=== PATIENT | female | born 1975 | race American Indian/Alaskan Native ===

== ENCOUNTER 2017-11-18 10:33 | Emergency (ER) | payer MEDICAID ==
[2017-11-18 11:16] VITALS: BP 127/78
[2017-11-18 12:12] LABS: Basophils # (Auto) 0.1 K/mm3 (0.0-0.1); Basophils % (Auto) 0.6 % (0.0-1.8); Eosinophils # (Auto) 0.7 K/mm3 (0.0-0.4); Eosinophils % (Auto) 7.8 % (0.0-4.3); Hematocrit 39.9 % (30.3-42.9); Hemoglobin 13.5 gm/dl (10.1-14.3); Lymphocytes % (Auto) 23.3 % (13.4-35.0); Mean Corpuscular HGB Conc 34 % (30-34); Mean Corpuscular Hemoglobin 33 pg (28-32); Mean Corpuscular Volume 98 fl (79-97); Monocytes # (Auto) 0.5 K/mm3 (0.0-0.8); Platelet Count 325 K/mm3 (140-440); Red Blood Count 4.07 M/mm3 (3.65-5.03); Red Cell Distribution Width 14.2 % (13.2-15.2)
[2017-11-18] MEDS ORDERED: TORADOL IV ONE (14:11)
[2017-11-18] MEDS ORDERED: NACL 0.9% 1000 ML 1,000 ML IV ONE (14:11)
--- NOTE | 2017-11-18 14:15 | Emergency Department Report ---
Blank Doc - Documentation Documentation: Patient is a 42-year-old [place] female who is presenting with vaginal bleeding and crampy lower abdominal pain for the last 2 days. Patient is S Mr. period was September 19. Patient is worried about miscarriage. Patient is positive Rh and does not need RhoGAM at this time. Ultrasound has been ordered a quantitative is an 800 range.
--- NOTE | 2017-11-18 17:00 | Emergency Department Report ---
ED HPI - General Chief complaint: Vaginal Bleeding Stated complaint: VAGINAL BLEEDING/POSS MISCARRIAGE Time Seen by Provider: 11/18/17 14:04 Source: patient Mode of arrival: Ambulatory Limitations: No Limitations - History of Present Illness Initial comments: Please see Blank note from emeses screening. Patient is a 42-year-old [place] female who is with vaginal bleeding. Patient's suprapubic discomfort as a 6 out of 10 in severity cramping patient has past 3 small clots of blood. Bleeding started yesterday. Last known menstrual period was September 19 - Related Data Previous Rx's Medication Instructions Recorded Last Taken Type Azithromycin [Zithromax] 2 tab PO ONCE #2 tablet 10/15/13 Unknown Rx Fluconazole [Diflucan] 150 mg PO QDAY #1 tablet 10/15/13 Unknown Rx Azithromycin [Zithromax TAB] 1,000 mg PO QDAY #4 tablet 05/10/15 Unknown Rx Ibuprofen [Motrin 600 MG tab] 600 mg PO Q8H PRN #50 tablet 05/10/15 Unknown Rx metroNIDAZOLE [Flagyl TAB] 500 mg PO Q12HR #20 tab 05/10/15 Unknown Rx Ibuprofen [Motrin] 600 mg PO Q8H PRN #12 tablet 11/18/17 Unknown Rx Allergies Allergy/AdvReac Type Severity Reaction Status Date / Time acetaminophen Allergy Unknown Verified 10/15/13 02:31 [From Tylenol-Codeine #3] ciprofloxacin [From Cipro] Allergy Nausea Verified 10/15/13 02:31 ciprofloxacin HCl Allergy Nausea Verified 10/15/13 02:31 [From Cipro] codeine phosphate Allergy Unknown Verified 10/15/13 02:31 [From Tylenol-Codeine #3] ED Review of Systems ROS: Stated complaint: VAGINAL BLEEDING/POSS MISCARRIAGE Other details as noted in HPI Constitutional: denies: chills, fever Eyes: denies: eye pain, eye discharge, vision change ENT: denies: ear pain, throat pain Respiratory: denies: cough, shortness of breath, wheezing Cardiovascular: denies: chest pain, palpitations Endocrine: no symptoms reported Gastrointestinal: denies: abdominal pain, nausea, diarrhea Genitourinary: denies: urgency, dysuria, discharge Musculoskeletal: denies: back pain, joint swelling, arthralgia Skin: denies: rash, lesions Neurological: denies: headache, weakness, paresthesias Psychiatric: denies: anxiety, depression Hematological/Lymphatic: denies: easy bleeding, easy bruising ED Past Medical Hx - Past Medical History Previous Medical History?: Yes Hx Psychiatric Treatment: Yes (Anxiety, Psychosis, Depression) Additional medical history: Vaginal warts (laser removed) , Eating disorder, Abortions x 10, Miscarriage x3 - Surgical History Past Surgical History?: Yes - Social History Smoking Status: Current Every Day Smoker Substance Use Type: Marijuana, Prescribed - Medications Home Medications: Home Medications Medication Instructions Recorded Confirmed Last Taken Type Azithromycin [Zithromax] 2 tab PO ONCE #2 tablet 10/15/13 Unknown Rx Fluconazole [Diflucan] 150 mg PO QDAY #1 tablet 10/15/13 Unknown Rx Azithromycin [Zithromax TAB] 1,000 mg PO QDAY #4 tablet 05/10/15 Unknown Rx Ibuprofen [Motrin 600 MG tab] 600 mg PO Q8H PRN #50 tablet 05/10/15 Unknown Rx metroNIDAZOLE [Flagyl TAB] 500 mg PO Q12HR #20 tab 05/10/15 Unknown Rx Ibuprofen [Motrin] 600 mg PO Q8H PRN #12 tablet 11/18/17 Unknown Rx ED Physical Exam - General Limitations: No Limitations General appearance: alert, in no apparent distress - Head Head exam: Present: atraumatic, normocephalic - Eye Eye exam: Present: normal appearance - ENT ENT exam: Present: mucous membranes moist - Neck Neck exam: Present: normal inspection - Respiratory Respiratory exam: Present: normal lung sounds bilaterally. Absent: respiratory distress - Cardiovascular Cardiovascular Exam: Present: regular rate, normal rhythm. Absent: systolic murmur, diastolic murmur, rubs, gallop - GI/Abdominal GI/Abdominal exam: Present: soft, tenderness (suprapubic), normal bowel sounds. Absent: distended, guarding, rebound - Extremities Exam Extremities exam: Present: normal inspection - Back Exam Back exam: Present: normal inspection - Neurological Exam Neurological exam: Present: alert, oriented X3 - Psychiatric Psychiatric exam: Present: normal affect, normal mood - Skin Skin exam: Present: warm, dry, intact, normal color. Absent: rash ED Course Vital Signs 11/18/17 11:10 Temperature 98.1 F Pulse Rate 85 Respiratory 16 Rate Blood Pressure 127/78 O2 Sat by Pulse 100 Oximetry ED Medical Decision Making - Lab Data Result diagrams: 11/18/17 11:18 Lab Results 11/18/17 11/18/17 11/18/17 Range/Units 11:18 11:18 11:18 WBC 8.6 (4.5-11.0) K/mm3 RBC 4.07 (3.65-5.03) M/mm3 Hgb 13.5 (10.1-14.3) gm/dl Hct 39.9 (30.3-42.9) % MCV 98 H (79-97) fl MCH 33 H (28-32) pg MCHC 34 (30-34) % RDW 14.2 (13.2-15.2) % Plt Count 325 (140-440) K/mm3 Lymph % (Auto) 23.3 (13.4-35.0) % Johnson % (Auto) 6.0 (0.0-7.3) % Eos % (Auto) 7.8 H (0.0-4.3) % Baso % (Auto) 0.6 (0.0-1.8) % Lymph # 2.0 (1.2-5.4) K/mm3 Johnson # 0.5 (0.0-0.8) K/mm3 Eos # 0.7 H (0.0-0.4) K/mm3 Baso # 0.1 (0.0-0.1) K/mm3 Seg Neutrophils % 62.3 (40.0-70.0) % Seg Neutrophils # 5.4 (1.8-7.7) K/mm3 HCG, Quant 821.9 H (0-4) mIU/mL Blood Type O POSITIVE Antibody Screen Negative - Radiology Data Radiology results: report reviewed No IUP is seen patient has normal ovaries - Medical Decision Making Had a long discussion with the patient regarding her beta hCG and her ultrasound and the fact that she is most likely miscarry however we cannot be percent. Patient is a threatened miscarriage at this time. Patient will follow with her doctor in 2-3 days for repeat beta Quant Critical care attestation.: If time is entered above; I have spent that time in minutes in the direct care of this critically ill patient, excluding procedure time. ED Disposition Clinical Impression: Threatened Disposition: DC-01 TO HOME OR SELFCARE Is pt being admited?: No Does the pt Need Aspirin: No Condition: Stable Instructions: Threatened Miscarriage (ED) Prescriptions: Ibuprofen [Motrin] 600 mg PO Q8H PRN #12 tablet PRN Reason: Pain Referrals: PRIMARY CARE,MD [Primary Care Provider] - 3-5 Days
--- NOTE | 2017-11-19 09:39 | Ultrasound Report ---
ULTRASOUND OB LESS THAN 14 WEEKS ULTRASOUND OB TRANSVAGINAL HISTORY: Vaginal bleeding during . TECHNIQUE: Transabdominal and transvaginal ultrasound imaging. FINDINGS: The uterus is anteverted. The uterus measures 8.7 x 5.8 x 6.2 cm. No uterine mass is identified. The cervix is unremarkable. The endometrium measures 10 mm in thickness. There is trace fluid in the lower uterine segment. No intrauterine is visualized. No heart tones. The right ovary measures 2.7 x 1.7 x 1.6 cm. The left ovary measures 2.8 x 2.0 x 3.1 cm. No adnexal cyst or mass is identified. No pelvic fluid collection. IMPRESSION: No intrauterine is visualized. This may represent spontaneous . The endometrial stripe measures 10 mm and contains trace fluid.
== END 2017-11-18 15:45 | disposition home or self-care (01) ==
LOC: ED 10:33
DX: O20.0 Threatened abortion (principal); Z3A.14 14 weeks gestation of pregnancy; O99.331 Smoking (tobacco) complicating pregnancy, first trimester
CPT/HCPCS: 36415; 76801; 76817; 84702; 85025; 86850; 86900; 86901; 96361; 96374; 99284; J1885; J7030

== ENCOUNTER 2019-01-03 12:42 | Emergency (ER) | payer MEDICAID, OTHER ==
[2019-01-03 13:20] VITALS: BP 121/76
--- NOTE | 2019-01-03 13:20 | Emergency Department Report ---
Blank Doc - Documentation Documentation: This is a 43-year-old female that presents with dysuria. Denies any back pain. This initial assessment/diagnostic orders/clinical plan/treatment(s) is/are subject to change based on patient's health status, clinical progression and re- assessment by fellow clinical providers in the ED. Further treatment and workup at subsequent clinical providers discretion. Patient/guardians urged not to elope from the ED as their condition may be serious if not clinically assessed and managed. Initial orders include: 1- Patient sent to [facility] for further evaluation and treatment 2- UA
[2019-01-03 13:27] LABS: Bacteria,Urine 1+ /HPF (Negative); Bilirubin,Urine NEG (Negative); Blood,Urine NEG (Negative); Color,Urine Yellow (Yellow); Mucus,Urine 3+ /HPF; Protein,Urine <15 mg/dL mg/dL (Negative); Urobilinogen,Urine < 2.0 mg/dL (<2.0)
[2019-01-03 13:28] LABS: HCG Qualitative,Urine Negative (Negative)
[2019-01-03] MEDS ORDERED: ZOFRAN ODT PO ONE (15:51)
--- NOTE | 2019-01-03 15:52 | Emergency Department Report ---
ED Dysuria HPI - HPI Chief Complaint: Urogenital-Female Stated Complaint: POSS UTI/RT SIDE PAIN Time Seen by Provider: 01/03/19 13:19 Duration: 2 Days Severity: None Symptoms: Dysuria: Yes, Frequency: No, Suprapubic Pain: No, Flank Pain: Yes, Fever: No, Hematuria: No, Abdominal Pain: No, Previous UTI's: Yes Other History: She is a 43-year-old female who comes to the ER today complaining of dysuria. She states this is how she feels when she has her urinary tract infections. Patient states her last menstrual cycle was 31. Patient describes a history of an eating disorder which she goes on to say it is anxiety and therefore she does not want to eat. She supposed to be on Xanax and Zoloft but has not been on them for 8 months. Patient has been taking herbs to treat her urinary tract infection she states that initially it seemed to get better but now today her dysuria is worsened. UTIs associated with some nausea. She has no fever. No chills. No abdominal pain. No CVA tenderness on exam. Patient is ambulatory and nontoxic in the ER ED Review of Systems ROS: Stated complaint: POSS UTI/RT SIDE PAIN Other details as noted in HPI Comment: All other systems reviewed and negative Constitutional: denies: chills, fever Eyes: denies: eye pain Respiratory: denies: cough Cardiovascular: denies: palpitations Endocrine: denies: excessive sweating Gastrointestinal: as per HPI, nausea Genitourinary: as per HPI, dysuria Musculoskeletal: denies: back pain Skin: denies: rash Neurological: denies: headache Psychiatric: denies: anxiety Hematological/Lymphatic: denies: easy bleeding ED Past Medical Hx - Past Medical History Previous Medical History?: Yes Hx Psychiatric Treatment: Yes (Anxiety, Psychosis, Depression) Additional medical history: Vaginal warts (laser removed) , Eating disorder, Abortions x 10, Miscarriage x3 - Surgical History Past Surgical History?: No - Family History Family history: no significant - Social History Smoking Status: Never Smoker Substance Use Type: None - Medications Home Medications: Home Medications Medication Instructions Recorded Confirmed Last Taken Type Fluconazole (Nf) [Diflucan] 100 mg PO QDAY #1 each 01/03/19 Unknown Rx Nitrofurantoin [place]/M-Cryst 100 mg PO Q12HR #10 capsule 01/03/19 Unknown Rx [Macrobid CAP] Ondansetron [Zofran Odt] 4 mg PO Q8HR PRN #10 tab.rapdis 01/03/19 Unknown Rx Dysuria Exam - Exam General: Vital signs noted. No distress. Alert and acting appropriately. S1 S2 HR 100 ON EXAM PT STATES SHE GETS ANXIOUS WHEN AT THE HOSPITAL LUNGS CTA ABD SOFT NONTENDER NO CVA TENDERNESS Exam: Yes Moist Mucous Membranes, No CVA Tenderness, No Abdominal Tenderness, No Rigidity or Guarding Labs: Lab Results 01/03/19 01/03/19 Range/Units 13:13 13:13 Urine Color Yellow (Yellow) Urine Turbidity Slightly-cloudy (Clear) Urine pH 5.0 (5.0-7.0) Ur Specific [place] 1.030 (1.003-1.030) Urine Protein <15 mg/dl (Negative) mg/dL Urine Glucose (UA) Neg (Negative) mg/dL Urine Ketones 20 (Negative) mg/dL Urine Blood Neg (Negative) Urine Nitrite Neg (Negative) Urine Bilirubin Neg (Negative) Urine Urobilinogen < 2.0 (<2.0) mg/dL Ur Leukocyte Esterase Neg (Negative) Urine WBC (Auto) 1.0 (0.0-6.0) /HPF Urine RBC (Auto) 4.0 (0.0-6.0) /HPF U Epithel Cells (Auto) 12.0 (0-13.0) /HPF Urine Bacteria (Auto) 1+ (Negative) /HPF Urine Mucus 3+ /HPF Urine HCG, Qual Negative (Negative) ED Course Vital Signs 01/03/19 13:18 Temperature 98 F Pulse Rate 114 H Respiratory 16 Rate Blood Pressure 121/76 O2 Sat by Pulse 98 Oximetry - Reevaluation(s) Reevaluation #1: 01/03/19 16:51 pt allergic to cipro and bactrim will treat with macrobid pt instructed to follow up with pcp to be sure this goes away. vss taking po on dc ED Medical Decision Making - Medical Decision Making UA NOTED HAS BEEN SELF TREATING WITH HERBS ASSOCIATED WITH NAUSEA SEE HPI HER NAUSEA AND ANXIETY SHE STATES HAVE LIMITED HER PO INTAKE Labs 01/03/19 01/03/19 13:13 13:13 Urine Color Yellow Urine Turbidity Slightly-cloudy Urine pH 5.0 Ur Specific [place] 1.030 Urine Protein <15 mg/dl Urine Glucose (UA) Neg Urine Ketones 20 Urine Blood Neg Urine Nitrite Neg Urine Bilirubin Neg Urine Urobilinogen < 2.0 Ur Leukocyte Esterase Neg Urine WBC (Auto) 1.0 Urine RBC (Auto) 4.0 U Epithel Cells (Auto) 12.0 Urine Bacteria (Auto) 1+ Urine Mucus 3+ Urine HCG, Qual Negative Vital Signs 01/03/19 13:18 Temperature 98 F Pulse Rate 114 H Respiratory 16 Rate Blood Pressure 121/76 O2 Sat by Pulse 98 Oximetry ALLERGY TO BACTRIM AND CIPRO DC ON MACROBID PT INSTRUCTED ON NEED TO FOLLOW UP DIFLUCAN FOR YEAST PREVENTION Critical care attestation.: If time is entered above; I have spent that time in minutes in the direct care of this critically ill patient, excluding procedure time. ED Disposition Clinical Impression: Anxiety, Medical non-compliance, Dysuria Disposition: - TO HOME OR SELFCARE Is pt being admited?: No Does the pt Need Aspirin: No Condition: Stable Instructions: Dehydration (ED) Additional Instructions: DRINK A LOT OF WATER URINE HAS NO SIGN OF INFECTION NOT MOTRIN OR TYLENOL FOR PAIN FOLLOW UP WITH PCP TO BE SURE YOU ARE GETTING BETTER. Prescriptions: Fluconazole (Nf) [Diflucan] 100 mg PO QDAY #1 each Nitrofurantoin [place]/M-Cryst [Macrobid CAP] 100 mg PO Q12HR #10 capsule Ondansetron [Zofran Odt] 4 mg PO Q8HR PRN #10 tab.rapdis PRN Reason: Vomiting Referrals: [facility] MD ALETHEA [Primary Care Provider] - 3-5 Days Time of Disposition: 15:50
== END 2019-01-03 16:57 | disposition home or self-care (01) ==
LOC: ED 12:42
DX: R30.0 Dysuria (principal); F41.9 Anxiety disorder, unspecified; F32.9 Major depressive disorder, single episode, unspecified; F29 Unspecified psychosis not due to a substance or known physiological condition; Z91.14 Patient's other noncompliance with medication regimen; Z88.6 Allergy status to analgesic agent; Z88.1 Allergy status to other antibiotic agents; Z88.5 Allergy status to narcotic agent
CPT/HCPCS: 81001; 81025; Q0162

== ENCOUNTER 2019-05-26 13:09 | Emergency (ER) | payer SELFPAY ==
[2019-05-26 13:23] VITALS: BP 121/77
--- NOTE | 2019-05-26 13:23 | Event Note ---
ED Screening Note ED Screening Note: pt having vaginal discharge This initial assessment/diagnostic orders/clinical plan/treatment(s) is/are s ubject to change based on patients health status, clinical progression and re- assessment by fellow clinical providers in the ED. Further treatment and workup at subsequent clinical providers discretion. Patient/guardian urged not to elope from the ED as their condition may be serious if not clinically assessed and managed. Initial orders include: UA, urine preg
[2019-05-26 13:53] LABS: Bilirubin,Urine NEG (Negative); Blood,Urine NEG (Negative); Color,Urine Yellow (Yellow); Mucus,Urine 3+ /HPF; Urobilinogen,Urine < 2.0 mg/dL (<2.0)
[2019-05-26 14:18] LABS: HCG Qualitative,Urine Negative (Negative)
--- NOTE | 2019-05-26 14:53 | Emergency Department Report ---
ED Female HPI - General Chief complaint: Urogenital-Female Stated complaint: VAGINAL DISCOMFORT/DISCHARGE Time Seen by Provider: 05/26/19 13:22 Source: patient Mode of arrival: Ambulatory Limitations: No Limitations - History of Present Illness Initial comments: 43-year-old female presents to ED complaining of vaginal discharge for the past 3 days. Patient states that she is similar symptoms before and had a bacterial infection. Patient states that she uses condoms while having sex with her partner says she is not worried about having an STD. Patient denies any dysuria, pelvic pain, abdominal pain, fever, nausea vomiting, she denies any vaginal lesions, swelling or any problems MD Complaint: vaginal discharge - Related Data Previous Rx's Medication Instructions Recorded Last Taken Type Fluconazole (Nf) [Diflucan] 100 mg PO QDAY #1 each 01/03/19 Unknown Rx Nitrofurantoin [place]/M-Cryst 100 mg PO Q12HR #10 capsule 01/03/19 Unknown Rx [Macrobid CAP] Ondansetron [Zofran Odt] 4 mg PO Q8HR PRN #10 tab.rapdis 01/03/19 Unknown Rx Fluconazole [Diflucan TAB] 150 mg PO ONCE #1 tablet 05/26/19 Unknown Rx metroNIDAZOLE [metroNIDAZOLE 1 applic VG QHS #1 tube 05/26/19 Unknown Rx VAGINAL 0.75% gel] Allergies Allergy/AdvReac Type Severity Reaction Status Date / Time acetaminophen Allergy Unknown Verified 10/15/13 02:31 [From Tylenol-Codeine #3] ciprofloxacin [From Cipro] Allergy Nausea Verified 10/15/13 02:31 ciprofloxacin HCl Allergy Nausea Verified 10/15/13 02:31 [From Cipro] codeine phosphate Allergy Unknown Verified 10/15/13 02:31 [From Tylenol-Codeine #3] sulfamethoxazole Allergy Hives Verified 05/26/19 13:11 [From Bactrim] trimethoprim [From Bactrim] Allergy Hives Verified 05/26/19 13:11 ED Review of Systems ROS: Stated complaint: VAGINAL DISCOMFORT/DISCHARGE Other details as noted in HPI Comment: All other systems reviewed and negative ED Past Medical Hx - Past Medical History Previous Medical History?: Yes Hx Psychiatric Treatment: Yes (Anxiety, Psychosis, Depression) Additional medical history: Vaginal warts (laser removed) , Eating disorder, Abortions x 10, Miscarriage x3 - Surgical History Past Surgical History?: No - Social History Smoking Status: Never Smoker Substance Use Type: None - Medications Home Medications: Home Medications Medication Instructions Recorded Confirmed Last Taken Type Fluconazole (Nf) [Diflucan] 100 mg PO QDAY #1 each 01/03/19 Unknown Rx Nitrofurantoin [place]/M-Cryst 100 mg PO Q12HR #10 capsule 01/03/19 Unknown Rx [Macrobid CAP] Ondansetron [Zofran Odt] 4 mg PO Q8HR PRN #10 tab.rapdis 01/03/19 Unknown Rx Fluconazole [Diflucan TAB] 150 mg PO ONCE #1 tablet 05/26/19 Unknown Rx metroNIDAZOLE [metroNIDAZOLE 1 applic VG QHS #1 tube 05/26/19 Unknown Rx VAGINAL 0.75% gel] ED Physical Exam - General Limitations: No Limitations General appearance: alert, in no apparent distress - Head Head exam: Present: atraumatic, normocephalic - Eye Eye exam: Present: normal appearance - ENT ENT exam: Present: mucous membranes moist - Neck Neck exam: Present: normal inspection - Respiratory Respiratory exam: Present: normal lung sounds bilaterally. Absent: respiratory distress - Cardiovascular Cardiovascular Exam: Present: regular rate, normal rhythm. Absent: systolic murmur, diastolic murmur, rubs, gallop - GI/Abdominal GI/Abdominal exam: Present: soft, normal bowel sounds - External exam: Present: normal external exam - Extremities Exam Extremities exam: Present: normal inspection - Back Exam Back exam: Present: normal inspection - Neurological Exam Neurological exam: Present: alert, oriented X3 - Psychiatric Psychiatric exam: Present: normal affect, normal mood - Skin Skin exam: Present: warm, dry, intact, normal color. Absent: rash ED Course Vital Signs 05/26/19 13:22 Temperature 98.1 F Pulse Rate 83 Respiratory 18 Rate Blood Pressure 121/77 [Right] O2 Sat by Pulse 100 Oximetry ED Medical Decision Making - Medical Decision Making 43-year-old female presents with vaginitis I discussed the patient she'll be treated with metronidazole and Diflucan. Discussed with patient follow-up with the [facility]. Urinalysis and urine test negative discussed findings with the patient. [facility] referral was given. Patient agrees with plan and is very appreciative of treatment for BC use. Vital signs are normal she is in no acute distress Critical care attestation.: If time is entered above; I have spent that time in minutes in the direct care of this critically ill patient, excluding procedure time. ED Disposition Clinical Impression: Vaginitis Disposition: DC-01 TO HOME OR SELFCARE Is pt being admited?: No Does the pt Need Aspirin: No Condition: Stable Instructions: Vaginitis (ED) Additional Instructions: Make sure to follow up with the primary care physician as discussed. Take all your medications as you've been prescribed. If you have any worsening symptoms or develop new symptoms please return to ED immediately. Prescriptions: metroNIDAZOLE [metroNIDAZOLE VAGINAL 0.75% gel] 1 applic VG QHS #1 tube Fluconazole [Diflucan TAB] 150 mg PO ONCE #1 tablet Referrals: [facility] [Provider Group] - 3-5 Days Forms: Work/School Release Form(ED) Time of Disposition: 14:53
== END 2019-05-26 15:05 | disposition home or self-care (01) ==
LOC: ED 13:09
DX: N76.0 Acute vaginitis (principal); F32.9 Major depressive disorder, single episode, unspecified; F41.9 Anxiety disorder, unspecified; Z79.899 Other long term (current) drug therapy; Z88.6 Allergy status to analgesic agent; Z88.1 Allergy status to other antibiotic agents; Z88.2 Allergy status to sulfonamides; Z88.8 Allergy status to other drugs, medicaments and biological substances
CPT/HCPCS: 81001; 81025; 99283

== ENCOUNTER 2019-12-10 03:23 | Emergency (ER) | payer SELFPAY ==
[2019-12-10 03:34] VITALS: BP 144/84
[2019-12-10 04:00] LABS: Bacteria,Urine 1+ /HPF (Negative); Bilirubin,Urine NEG (Negative); Blood,Urine LG (Negative); Color,Urine Yellow (Yellow); HCG Qualitative,Urine Negative (Negative); Mucus,Urine FEW /HPF; RBC,Urine > 182.0 /HPF (0.0-6.0); Urobilinogen,Urine < 2.0 mg/dL (<2.0); WBC,Urine > 182.0 /HPF (0.0-6.0)
[2019-12-10] MEDS ORDERED: ACETAMINOPHEN 500 MG TAB PO ONE (04:39)
[2019-12-10] MEDS ORDERED: LIDOCAINE-MPF (1%) 10 MG/1 ML VIAL 5 ML INFILTRATI ONE (04:39)
[2019-12-10 04:41] LABS: Basophils # (Auto) 0.1 K/mm3 (0.0-0.1); Basophils % (Auto) 0.6 % (0.0-1.8); Eosinophils # (Auto) 0.9 K/mm3 (0.0-0.4); Eosinophils % (Auto) 4.8 % (0.0-4.3); Hematocrit 40.4 % (30.3-42.9); Hemoglobin 13.4 gm/dl (10.1-14.3); Lymphocytes # (Auto) 3.5 K/mm3 (1.2-5.4); Lymphocytes % (Auto) 19.8 % (13.4-35.0); Mean Corpuscular HGB Conc 33 % (30-34); Mean Corpuscular Volume 99 fl (79-97); Monocytes # (Auto) 0.9 K/mm3 (0.0-0.8); Monocytes % (Auto) 4.9 % (0.0-7.3); Platelet Count 312 K/mm3 (140-440); Red Cell Distribution Width 14.4 % (13.2-15.2)
[2019-12-10] MEDS ORDERED: ONDANSETRON 4 MG ODT TAB PO ONE (04:52)
[2019-12-10 04:55] LABS: Alanine Aminotransferase 11 units/L (7-56); Albumin 4.8 g/dL (3.9-5); BUN/Creatinine Ratio 17; Blood Urea Nitrogen 12 mg/dL (7-17); Calcium 9.9 mg/dL (8.4-10.2); Hemolysis Index 7
--- NOTE | 2019-12-10 05:06 | Emergency Department Report ---
ED Female HPI - General Chief complaint: Abdominal Pain Stated complaint: LEFT SIDE PAIN Source: patient Mode of arrival: Ambulatory Limitations: No Limitations - History of Present Illness Initial comments: Patient is a 44-year-old -[place] female with a history of bipolar disorder and not on medications and chronic recurrent urinary tract infections who presents to the ED with acute onset persistent suprapubic pressure and pain that radiates to the left lower quadrant and left flank with urinary frequency and urgency, dysuria, hematuria and nausea for the last 2 days. Patient admits to not drinking water but sodas and coffee. Patient states that the symptoms are similar to her chronic urine UTI exacerbations. Patient denies fever, chills, vomiting, dizziness, vaginal discharge, dyspareunia, change in vision, cough, chest pain, shortness of breath or diarrhea. MD Complaint: dysuria, pelvic pain (pressure), other (urinary urgency and frequency; hematuria) -: Sudden, days(s) (2) Location: suprapubic Radiation: LLQ, L flank Severity: severe Severity scale (0 -10): 7 Quality: sharp, aching Consistency: constant Improves with: none Worsens with: urination, movement Are you Now?: No Last Menstrual Period: 11/30/19 EDC: 09/05/20 Associated Symptoms: denies other symptoms, abdominal pain (suprapubic), nausea/vomiting, loss of appetite, dysuria, hematuria. denies: vaginal discharge, vaginal bleeding, fever/chills, headaches, rash, seizure, shortness of breath, syncope - Related Data Sexually active: Yes Previous Rx's Medication Instructions Recorded Last Taken Type Fluconazole (Nf) [Diflucan] 100 mg PO QDAY #1 each 01/03/19 Unknown Rx Nitrofurantoin Prentiss/M-Cryst 100 mg PO Q12HR #10 capsule 01/03/19 Unknown Rx [Macrobid CAP] Ondansetron [Zofran Odt] 4 mg PO Q8HR PRN #10 tab.rapdis 01/03/19 Unknown Rx metroNIDAZOLE [metroNIDAZOLE 1 applic VG QHS #1 tube 05/26/19 Unknown Rx VAGINAL 0.75% gel] Fluconazole [Diflucan TAB] 150 mg PO ONCE #1 tablet 12/10/19 Unknown Rx Naproxen 500 mg PO Q12H #24 tablet 12/10/19 Unknown Rx Promethazine [Phenergan] 25 mg PO Q6HR PRN #20 tab 12/10/19 Unknown Rx cephALEXin [Keflex] 500 mg PO Q6HR #40 capsule 12/10/19 Unknown Rx Allergies Allergy/AdvReac Type Severity Reaction Status Date / Time acetaminophen Allergy Unknown Verified 10/15/13 02:31 [From Tylenol-Codeine #3] ciprofloxacin [From Cipro] Allergy Nausea Verified 10/15/13 02:31 ciprofloxacin HCl Allergy Nausea Verified 10/15/13 02:31 [From Cipro] codeine phosphate Allergy Unknown Verified 10/15/13 02:31 [From Tylenol-Codeine #3] sulfamethoxazole Allergy Hives Verified 05/26/19 13:11 [From Bactrim] trimethoprim [From Bactrim] Allergy Hives Verified 05/26/19 13:11 ED Review of Systems ROS: Stated complaint: LEFT SIDE PAIN Other details as noted in HPI Constitutional: denies: chills, fever Eyes: denies: eye pain, eye discharge, vision change ENT: denies: ear pain, throat pain Respiratory: denies: cough, shortness of breath, wheezing Cardiovascular: denies: chest pain, palpitations Endocrine: no symptoms reported Gastrointestinal: abdominal pain (suprapubic), nausea. denies: diarrhea Genitourinary: urgency, dysuria, frequency, hematuria, discharge Musculoskeletal: back pain (lower back), arthralgia. denies: joint swelling Skin: denies: rash, lesions Neurological: denies: headache, weakness, paresthesias Psychiatric: denies: anxiety, depression Hematological/Lymphatic: denies: easy bleeding, easy bruising ED Past Medical Hx - Past Medical History Previous Medical History?: Yes Hx Psychiatric Treatment: Yes (Anxiety, Psychosis, Depression) Additional medical history: Vaginal warts (laser removed) , Eating disorder, Abortions x 10, Miscarriage x3 - Surgical History Past Surgical History?: No - Social History Smoking Status: Current Every Day Smoker Substance Use Type: Marijuana - Medications Home Medications: Home Medications Medication Instructions Recorded Confirmed Last Taken Type Fluconazole (Nf) [Diflucan] 100 mg PO QDAY #1 each 01/03/19 Unknown Rx Nitrofurantoin Prentiss/M-Cryst 100 mg PO Q12HR #10 capsule 01/03/19 Unknown Rx [Macrobid CAP] Ondansetron [Zofran Odt] 4 mg PO Q8HR PRN #10 tab.rapdis 01/03/19 Unknown Rx metroNIDAZOLE [metroNIDAZOLE 1 applic VG QHS #1 tube 05/26/19 Unknown Rx VAGINAL 0.75% gel] Fluconazole [Diflucan TAB] 150 mg PO ONCE #1 tablet 12/10/19 Unknown Rx Naproxen 500 mg PO Q12H #24 tablet 12/10/19 Unknown Rx Promethazine [Phenergan] 25 mg PO Q6HR PRN #20 tab 12/10/19 Unknown Rx cephALEXin [Keflex] 500 mg PO Q6HR #40 capsule 12/10/19 Unknown Rx ED Physical Exam - General Limitations: No Limitations General appearance: alert, in no apparent distress - Head Head exam: Present: atraumatic, normocephalic, normal inspection - Eye Eye exam: Present: normal appearance, PERRL, EOMI Pupils: Present: normal accommodation - ENT ENT exam: Present: normal exam, normal orophraynx, mucous membranes moist, TM's normal bilaterally, normal external ear exam - Neck Neck exam: Present: normal inspection, full ROM. Absent: tenderness - Respiratory Respiratory exam: Present: normal lung sounds bilaterally. Absent: respiratory distress, wheezes, rales, rhonchi, chest wall tenderness, accessory muscle use, decreased breath sounds - Cardiovascular Cardiovascular Exam: Present: regular rate, normal rhythm, normal heart sounds. Absent: systolic murmur, diastolic murmur, rubs, gallop - GI/Abdominal GI/Abdominal exam: Present: soft, normal bowel sounds. Absent: tenderness, guarding, rebound, hyperactive bowel sounds, hypoactive bowel sounds, organomegaly - Extremities Exam Extremities exam: Present: normal inspection, full ROM, normal capillary refill - Back Exam Back exam: Present: normal inspection, full ROM. Absent: tenderness, CVA tenderness (R), muscle spasm, paraspinal tenderness - Neurological Exam Neurological exam: Present: alert, oriented X3, CN II-XII intact, normal gait, reflexes normal - Psychiatric Psychiatric exam: Present: normal affect, normal mood - Skin Skin exam: Present: warm, dry, intact, normal color. Absent: rash ED Course Vital Signs 12/10/19 03:32 Temperature 98.1 F Pulse Rate 81 Respiratory 18 Rate Blood Pressure 144/84 O2 Sat by Pulse 100 Oximetry ED Medical Decision Making - Lab Data Result diagrams: 12/10/19 04:16 12/10/19 04:16 - Medical Decision Making This is a 44-year-old female who presented to the ED with acute onset persistent suprapubic pressure, left lower quadrant pain, urinary frequency and urgency, dysuria, hematuria and nausea. In the ED, patient is alert and oriented x3 and is not in distress but anxious with normal vital signs. Urinalysis is significant for acute urinary tract infection characterized by positive nitrites, large leukocyte Estrace and >182 WBC and +1 bacteria. It also shows acute leukocytosis of 17,900. The rest of the lab test results are unremarkable. I offered to give the patient normal saline IV fluids but the patient declined the offer. Patient was therefore treated in the ED with Rocephin 1 g intramuscular injection, Tylenolfor pain and Zofran for nausea. On reevaluation, patient's pain is well controlled with medications. Patient was discharged home on antibiotics and pain medications and advised to follow-up with her [facility] physician in 7 to 10 days for reevaluation or return to the ED immediately if symptoms get worse. - Differential Diagnosis UTI; Colitis; Kidney stones; ; muscle spasm; muscle strain Critical care attestation.: If time is entered above; I have spent that time in minutes in the direct care of this critically ill patient, excluding procedure time. ED Disposition Clinical Impression: Acute urinary tract infection, Acute suprapubic pain, Dysuria Disposition: -01 TO HOME OR SELFCARE Is pt being admited?: No Does the pt Need Aspirin: No Condition: Stable Instructions: Abdominal Pain (ED), Dysuria (ED), Urinary Tract Infection in Women (ED) Additional Instructions: Take medications with food, drink plenty of fluids and follow-up with your primary care physician or [facility] physician in 7 to 10 days for reevaluation. Return to the ED immediately if symptoms get worse. Prescriptions: Fluconazole [Diflucan TAB] 150 mg PO ONCE #1 tablet cephALEXin [Keflex] 500 mg PO Q6HR #40 capsule Naproxen 500 mg PO Q12H #24 tablet Promethazine [Phenergan] 25 mg PO Q6HR PRN #20 tab PRN Reason: Nausea Referrals: DILLAN VILLASENOR MD [Staff Physician] - 7-10 days Forms: Work/School Release Form(ED) Time of Disposition: 05:06 Print Language: LATVIAN
== END 2019-12-10 05:30 | disposition home or self-care (01) ==
LOC: ED 03:23
DX: N39.0 Urinary tract infection, site not specified (principal); Z88.0 Allergy status to penicillin; Z88.1 Allergy status to other antibiotic agents; F22 Delusional disorders; F32.89 Other specified depressive episodes; F41.9 Anxiety disorder, unspecified; F17.200 Nicotine dependence, unspecified, uncomplicated; F12.10 Cannabis abuse, uncomplicated
CPT/HCPCS: 36415; 80053; 81001; 81025; 83690; 85025; 96372; 99283; J0696; Q0162

== ENCOUNTER 2021-03-16 10:43 | Emergency (ER) | payer SELFPAY ==
[2021-03-16 11:10] VITALS: BP 116/85
--- NOTE | 2021-03-16 11:15 | Emergency Department Report ---
ED ENT HPI - General Chief complaint: Sore Throat Stated complaint: SWOLLEN TONSIL LT NECK PAIN Time Seen by Provider: 03/16/21 11:14 Source: patient Mode of arrival: Ambulatory Limitations: No Limitations - History of Present Illness Initial comments: 45-year-old female presents to the ER today complaining of left-sided sore throat. She states that symptoms started about a week ago. She reports intermittent pain with swallowing. She denies any sensation that her throat is swollen. She denies any difficulty opening her mouth or difficulty controlling her secretions. Patient states that she has been doing a lot of traveling lately and she was around her cousin who had strep which she found out about a week or 2 later. Patient states that she has been doing home remedies which has been helping but she still feels like there is something wrong. She states that she did have oral intercourse January 2021 and she is concerned that the pain in her throat could be related to an STD infection. She denies any mucus drainage. She denies any fever or chills. She denies any other symptoms at this time. MD complaint: sore throat -: week(s) (1) - Related Data Previous Rx's Medication Instructions Recorded Last Taken Type Amoxicillin [Trimox CAP] 500 mg PO Q12H #20 capsule 03/16/21 Unknown Rx Allergies Allergy/AdvReac Type Severity Reaction Status Date / Time acetaminophen Allergy Unknown Verified 10/15/13 02:31 [From Tylenol-Codeine #3] ciprofloxacin [From Cipro] Allergy Nausea Verified 10/15/13 02:31 ciprofloxacin HCl Allergy Nausea Verified 10/15/13 02:31 [From Cipro] codeine phosphate Allergy Unknown Verified 10/15/13 02:31 [From Tylenol-Codeine #3] sulfamethoxazole Allergy Hives Verified 05/26/19 13:11 [From Bactrim] trimethoprim [From Bactrim] Allergy Hives Verified 05/26/19 13:11 ED Dental HPI - General Chief complaint: Sore Throat Stated complaint: SWOLLEN TONSIL LT NECK PAIN Time Seen by Provider: 03/16/21 11:14 Source: patient Mode of arrival: Ambulatory Limitations: No Limitations - Related Data Previous Rx's Medication Instructions Recorded Last Taken Type Amoxicillin [Trimox CAP] 500 mg PO Q12H #20 capsule 03/16/21 Unknown Rx Allergies Allergy/AdvReac Type Severity Reaction Status Date / Time acetaminophen Allergy Unknown Verified 10/15/13 02:31 [From Tylenol-Codeine #3] ciprofloxacin [From Cipro] Allergy Nausea Verified 10/15/13 02:31 ciprofloxacin HCl Allergy Nausea Verified 10/15/13 02:31 [From Cipro] codeine phosphate Allergy Unknown Verified 10/15/13 02:31 [From Tylenol-Codeine #3] sulfamethoxazole Allergy Hives Verified 05/26/19 13:11 [From Bactrim] trimethoprim [From Bactrim] Allergy Hives Verified 05/26/19 13:11 ED Review of Systems ROS: Stated complaint: SWOLLEN TONSIL LT NECK PAIN Other details as noted in HPI Comment: All other systems reviewed and negative Constitutional: denies: chills, fever Eyes: denies: eye pain, eye discharge, vision change ENT: throat pain. denies: dental pain, hearing loss, epistaxis, congestion Respiratory: denies: cough, orthopnea, shortness of breath, SOB with exertion, SOB at rest, wheezing Cardiovascular: denies: chest pain, palpitations, dyspnea on exertion, edema, syncope, paroxysmal nocturnal dyspnea Endocrine: no symptoms reported Gastrointestinal: denies: abdominal pain, nausea, diarrhea, constipation, hematemesis, hematochezia Genitourinary: denies: urgency, dysuria, discharge Musculoskeletal: denies: back pain, joint swelling, arthralgia Skin: denies: rash, lesions, change in color, change in hair/nails, pruritus Neurological: denies: headache, weakness, numbness, paresthesias, confusion, abnormal gait, vertigo Psychiatric: denies: anxiety, depression Hematological/Lymphatic: denies: easy bleeding, easy bruising, swollen glands ED Past Medical Hx - Past Medical History Previous Medical History?: Yes Hx Psychiatric Treatment: Yes (Anxiety, Psychosis, Depression) Additional medical history: Vaginal warts (laser removed) , Eating disorder, Abortions x 10, Miscarriage x3 - Social History Smoking Status: Current Every Day Smoker Substance Use Type: Marijuana - Medications Home Medications: Home Medications Medication Instructions Recorded Confirmed Last Taken Type Amoxicillin [Trimox CAP] 500 mg PO Q12H #20 capsule 03/16/21 Unknown Rx ED Physical Exam - General Limitations: No Limitations General appearance: alert, in no apparent distress - Head Head exam: Present: atraumatic, normocephalic, normal inspection - Eye Eye exam: Present: normal appearance, PERRL, EOMI Pupils: Present: normal accommodation - ENT ENT exam: Present: normal exam - Expanded ENT Exam Expanded Mouth exam: Present: normal external inspection. Absent: drooling, trismus, muffled voice, tongue normal, tongue elevation, laceration Throat exam: Positive: tonsillar erythema, tonsillomegaly (mainly left side, mildly ). Negative: tonsillar exudate, R peritonsillar mass, L peritonsillar mass - Neck Neck exam: Present: normal inspection, full ROM, lymphadenopathy (Mild anterior cervical lymphadenopathy without any associated cellulitis or tenderness.). Absent: tenderness, meningismus - Respiratory Respiratory exam: Absent: respiratory distress - Cardiovascular Cardiovascular Exam: Present: regular rate - Neurological Exam Neurological exam: Present: alert, oriented X3, CN II-XII intact, normal gait - Psychiatric Psychiatric exam: Present: normal affect, normal mood - Skin Skin exam: Present: intact ED Course Vital Signs 03/16/21 11:08 Temperature 99.4 F Pulse Rate 94 H Respiratory 18 Rate Blood Pressure 116/85 [Right] O2 Sat by Pulse 97 Oximetry ED Medical Decision Making - Medical Decision Making Patient presented with complaint of left-sided sore throat for about 1 week. She admitted that she had been around a family member with strep but she states she was also concerned for possible STD in her throat since she had oral sex but this was back in January. Exam showed some mild swelling to the tonsils with erythema but no significant amount of exudates. No evidence of peritonsillar abscess or Lukasz's angina. Patient tolerating her secretions well and there is no trismus on exam. No respiratory distress or stridor. No muffled voice. Informed patient that I have a low suspicion that her sore throat is related to an STD especially since her episode of oral sex was over a month ago. She stated her partner denied any symptoms. I would suspect that she would be more symptomatic and a lot sooner than now, if she had gonorrhea pharyngitis but patient stated that she was really concerned and therefore she was given Rocephin and Zithromax. She denied any vaginal symptoms. She will also be discharged home on Amoxicillin given her exposure to strep. Patient expressed understanding of instructions and agree with plan. Patient was stable at time of discharge. Critical care attestation.: If time is entered above; I have spent that time in minutes in the direct care of this critically ill patient, excluding procedure time. ED Disposition Clinical Impression: Pharyngitis Disposition: - TO HOME OR SELFCARE Is pt being admited?: No Does the pt Need Aspirin: No Condition: Stable Instructions: Pharyngitis, [id number] Additional Instructions: Take the amoxicillin as prescribed. You can take Tylenol or ibuprofen [id number] as needed for pain. Continue to stay hydrated by drinking lots of fluids. If your symptoms persist follow-up with the ENT listed on your discharge instructions. Return to the ER if your symptoms changes or worsens in any way. Prescriptions: Amoxicillin [Trimox CAP] 500 mg PO Q12H #20 capsule Referrals: AMARA KAY MD [Staff Physician] - 3-5 Days (biodiesel engine specialist) Time of Disposition: 11:28
[2021-03-16] MEDS ORDERED: AZITHROMYCIN 1 GM ORAL PWDR PACKET PO ONE (11:21)
[2021-03-16] MEDS ORDERED: LIDOCAINE-MPF (1%) 10 MG/1 ML VIAL 5 ML INFILTRATI ONE (11:21)
== END 2021-03-16 12:56 | disposition home or self-care (01) ==
LOC: ED 10:43
DX: J02.9 Acute pharyngitis, unspecified (principal); F41.9 Anxiety disorder, unspecified; F32.9 Major depressive disorder, single episode, unspecified; F17.200 Nicotine dependence, unspecified, uncomplicated; F12.90 Cannabis use, unspecified, uncomplicated; Z79.899 Other long term (current) drug therapy; Z88.8 Allergy status to other drugs, medicaments and biological substances
CPT/HCPCS: 96372; 99282; J0696

== ENCOUNTER 2021-06-19 10:42 | Emergency (ER) | payer SELFPAY ==
--- NOTE | 2021-06-19 12:35 | Emergency Department Report ---
ED Back Pain/Injury HPI - General Chief Complaint: Urogenital-Female Stated Complaint: UTI Time Seen by Provider: 06/19/21 12:17 Source: patient Mode of arrival: Ambulatory Limitations: No Limitations - History of Present Illness Initial Comments: This is a 45-year-old -Swiss female who presents to the emergency room with lower abdominal pain for 3 weeks. Past medical history of recurrent urinary tract infections. Associated symptoms of nausea, dysuria, urinary urgency, and urinary frequency. Patient currently taking AZO and cranberry j uice with minimal change in symptoms. Denies fever, chills, abdominal pain, or vaginal discharge. MD Complaint: back pain Onset/Timin -: week(s) Similar Symptoms Previously: No Place: home Associated Symptoms: denies: numbness, difficulty urinating, incontinence, fever/chills - Related Data Previous Rx's Medication Instructions Recorded Last Taken Type Amoxicillin [Trimox CAP] 500 mg PO Q12H #20 capsule 03/16/21 Unknown Rx Nitrofurantoin Macrocrystal 100 mg PO BID #10 capsule 06/19/21 Unknown Rx [Nitrofurantoin] Ondansetron [Zofran Odt] 4 mg PO Q8HR #12 tab.rapdis 06/19/21 Unknown Rx Allergies Allergy/AdvReac Type Severity Reaction Status Date / Time acetaminophen Allergy Unknown Verified 10/15/13 02:31 [From Tylenol-Codeine #3] ciprofloxacin [From Cipro] Allergy Nausea Verified 10/15/13 02:31 ciprofloxacin HCl Allergy Nausea Verified 10/15/13 02:31 [From Cipro] codeine phosphate Allergy Unknown Verified 10/15/13 02:31 [From Tylenol-Codeine #3] sulfamethoxazole Allergy Hives Verified 05/26/19 13:11 [From Bactrim] trimethoprim [From Bactrim] Allergy Hives Verified 05/26/19 13:11 ED Review of Systems ROS: Stated complaint: UTI Other details as noted in HPI Constitutional: denies: chills, fever Respiratory: denies: cough, shortness of breath, wheezing Cardiovascular: denies: chest pain, palpitations Gastrointestinal: denies: abdominal pain, nausea, diarrhea Genitourinary: urgency, dysuria, frequency. denies: hematuria, discharge Musculoskeletal: back pain. denies: joint swelling, arthralgia Neurological: denies: headache, weakness, paresthesias Psychiatric: denies: anxiety, depression ED Past Medical Hx - Past Medical History Vaginal warts (laser removed) , Eating disorder, Abortions x 10, Miscarriage x3 Family history: no significant family history ED Back Pain Physical Exam - Exam General: Vital signs noted. No distress. Alert and acting appropriately. Back/Abdomen: Yes Abdominal Tenderness (Suprapubic tenderness), No Perithoracic Tenderness, No Perilumbar Tenderness, No Sacroiliac Tenderness, No Flank Tenderness, No Straight Leg Raise Pain Neuro: Yes Normal Sensation, Yes Normal DTR's, Yes Normal Gait, No Motor Weakness ED Course Vital Signs 06/19/21 11:52 Temperature 98.2 F Pulse Rate 107 H Respiratory 20 Rate Blood Pressure 125/89 O2 Sat by Pulse 100 Oximetry - Reevaluation(s) Reevaluation #1: 06/19/21 14:04 Repeatedly called lab and pending UA & urine hCG Ed Back Pain Tests - Tests Tests: Normal UA ED Medical Decision Making - Lab Data Lab Results 06/19/21 Range/Units Unknown Urine Color Yellow (Yellow) Urine Turbidity Clear (Clear) Urine pH 5.0 (5.0-7.0) Ur Specific [place] 1.012 (1.003-1.030) Urine Protein <15 mg/dl (Negative) mg/dL Urine Glucose (UA) Neg (Negative) mg/dL Urine Ketones Neg (Negative) mg/dL Urine Blood Neg (Negative) Urine Nitrite Neg (Negative) Urine Bilirubin Neg (Negative) Urine Urobilinogen < 2.0 (<2.0) mg/dL Ur Leukocyte Esterase Neg (Negative) Urine WBC (Auto) 4.0 (0.0-6.0) /HPF Urine RBC (Auto) 1.0 (0.0-6.0) /HPF U Epithel Cells (Auto) 5.0 (0-13.0) /HPF Urine Mucus Few /HPF Urine HCG, Qual Negative (Negative) Vital Signs 06/19/21 06/19/21 11:52 14:11 Temperature 98.2 F 97.9 F Pulse Rate 107 H 89 Respiratory 20 18 Rate Blood Pressure 125/89 124/86 O2 Sat by Pulse 100 100 Oximetry - Medical Decision Making This is a 45-year-old female who presents to the emergency room with right flank pain and nausea for 1 week. Patient nontoxic appearing and stable. Abdomen nontender negative CVA tenderness on exam. Urine test negative. Symptoms are highly unlikely ovarian torsion, PID, gonorrhea or chlamydia, conjunctivitis, SBO, appendicitis, or other acute abdomen. Although urinalysis was normal patient will be treated because she is symptomatic. Start antibiotics and antiemetics. Plan discussed with patient. Follow-up with the PCP. Critical care attestation.: If time is entered above; I have spent that time in minutes in the direct care of this critically ill patient, excluding procedure time. ED Disposition Clinical Impression: Symptomatic urinary tract infection, Nausea, Frequency of urination, Urgency of urination Disposition: 01 HOME / SELF CARE / HOMELESS Is pt being admited?: No Condition: Stable Instructions: Urinary Tract Infection, Adult, [id number], Nausea, Adult, [id number] Prescriptions: Nitrofurantoin Macrocrystal [Nitrofurantoin] 100 mg PO BID #10 capsule Ondansetron [Zofran Odt] 4 mg PO Q8HR #12 tab.rapdis Referrals: [facility] [Provider Group] - 3-5 Days JERONIMO HAIRSTON MD [Staff Physician] - 3-5 Days Forms: Work/School Release Form(ED) Time of Disposition: 14:56
[2021-06-19 13:20] LABS: Bilirubin,Urine NEG (Negative); Blood,Urine NEG (Negative); Color,Urine Yellow (Yellow); Mucus,Urine FEW /HPF; Protein,Urine <15 mg/dL mg/dL (Negative); Urobilinogen,Urine < 2.0 mg/dL (<2.0)
[2021-06-19 14:06] LABS: HCG Qualitative,Urine Negative (Negative)
[2021-06-19 15:21] VITALS: BP 121/90
== END 2021-06-19 15:21 | disposition home or self-care (01) ==
LOC: ED 10:42
DX: N39.0 Urinary tract infection, site not specified (principal); Z88.6 Allergy status to analgesic agent; Z88.8 Allergy status to other drugs, medicaments and biological substances; Z79.899 Other long term (current) drug therapy
CPT/HCPCS: 81001; 81025; 99283